=== PATIENT | female | born 1970 | race Caucasian/White ===

== ENCOUNTER 2018-11-15 01:09 | Emergency (ER) | payer BC, OTHER ==
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
[2018-11-15] MEDS ORDERED: Meclizine 12.5 MG Tab PO ONE (02:02)
--- NOTE | 2018-11-15 07:08 | CT ---
Head CT Technique: Multiple axial sections through the brain were obtained. Intravenous contrast was not utilized. Comparison: Prior MRI brain of 09/26/[address] exam of 09/26/18. Findings: Ventricles along with basal cisterns and sulci over the convexities appear within normal limits for the patient's age. No abnormal parenchymal densities are seen. No evidence of intracranial hemorrhage. No midline shift or mass effect is seen. Bone window settings were reviewed which show the visualized mastoid sinuses and paranasal sinuses show nothing acute. No acute calvarial abnormality is seen. Impression: 1. Nothing acute is appreciated on noncontrast head CT exam. No significant change is seen from previous study. Diagnostic code #1 I agree with preliminary report from [facility], finalized on 11/15/18, 3:33 AM Central Time
== END 2018-11-15 03:04 | disposition home or self-care (01) ==
LOC: JD.ED 01:09
DX: H81.11 Benign paroxysmal vertigo, right ear (principal); J45.909 Unspecified asthma, uncomplicated; F90.9 Attention-deficit hyperactivity disorder, unspecified type; Z86.73 Personal history of transient ischemic attack (TIA), and cerebral infarction without residual deficits; Z79.899 Other long term (current) drug therapy; Z79.82 Long term (current) use of aspirin
CPT/HCPCS: 36415; 70450; 80053; 82465; 83718; 83721; 85025; 93005; 99284; A9270; 93010; 99283